=== PATIENT | female | born 1985 | race Caucasian/White ===

== ENCOUNTER 2016-09-01 00:14 | Emergency (ER) | payer OTHER ==
[~2016-09-01] VITALS: Ht 157.5 cm; Wt 56.7 kg
[~2016-09-01 00:14] MED LIST: BACTRIM DS TABL1 TA1 PO; CIPRO PO; FLEXERIL10 MG PO; IBUPROFEN800 MG PO; NAPROXEN PO; NO MEDICATIONS; VICODIN 5/1 TAB 5/50 PO; VOLTAREN75 MG PO
[2016-09-01] MEDS ORDERED: PERCOCET5/325 PO (00:25)
== END 2016-09-01 01:47 | disposition home or self-care (01) ==
LOC: SED 00:14
DX: S05.02XA Injury of conjunctiva and corneal abrasion without foreign body, left eye, initial encounter (principal); F17.210 Nicotine dependence, cigarettes, uncomplicated; Z86.14 Personal history of Methicillin resistant Staphylococcus aureus infection; X58.XXXA Exposure to other specified factors, initial encounter
CPT/HCPCS: 90471; 90715; 99283